=== PATIENT | male | born 1970 | race Caucasian/White ===

== ENCOUNTER 2020-05-28 13:22 | Outpatient (CLI) | payer OTHER, SELFPAY | END 2020-05-28 13:23 | disposition home or self-care (01) | LOC: ANHCOVIDVC 13:22 | PROVIDERS: PCP Orthopaedic Surgery | DX: Z23 Encounter for immunization (principal) | CPT/HCPCS: 0001A; 91300 ==

== ENCOUNTER 2020-06-18 13:05 | Outpatient (CLI) | payer OTHER, SELFPAY | END 2020-06-18 13:06 | disposition home or self-care (01) | LOC: ANHCOVIDVC 13:06 | PROVIDERS: PCP Orthopaedic Surgery | DX: Z23 Encounter for immunization (principal) | CPT/HCPCS: 0002A; 91300 ==